=== PATIENT | female | born 1995 | race Two or more races ===

== ENCOUNTER 2016-11-24 11:55 | Emergency (ER) | payer MEDICAID ==
[~2016-11-24] VITALS: Ht 160 cm; Wt 77.1 kg
[~2016-11-24 11:55] MED LIST: CALCTAB25 PO; FERR325T50 PO; PREN-96 PO
[2016-11-24 12:39] VITALS: BP 118/79
[2016-11-24] MEDS ORDERED: diphenhdrAMINE HCL 50 MG/1 ML VL IM ONE (13:15)
== END 2016-11-24 13:31 | disposition home or self-care (01) ==
LOC: ER 11:55
DX: F12.10 Cannabis abuse, uncomplicated (principal); Z83.3 Family history of diabetes mellitus; Z79.899 Other long term (current) drug therapy
CPT/HCPCS: 96372; 99283; J1200

== ENCOUNTER 2018-04-09 06:47 | Emergency (ER) | payer MEDICAID ==
[~2018-04-09] VITALS: Ht 160 cm; Wt 53.9 kg
[2018-04-09 07:32] VITALS: BP 114/79
== END 2018-04-09 09:12 | disposition home or self-care (01) ==
LOC: ER 06:47
DX: S39.012A Strain of muscle, fascia and tendon of lower back, initial encounter (principal); S29.012A Strain of muscle and tendon of back wall of thorax, initial encounter; S16.1XXA Strain of muscle, fascia and tendon at neck level, initial encounter; M62.838 Other muscle spasm; R51 Headache; V49.9XXA Car occupant (driver) (passenger) injured in unspecified traffic accident, initial encounter; Y93.89 Activity, other specified; Y92.89 Other specified places as the place of occurrence of the external cause; Y99.8 Other external cause status
CPT/HCPCS: 70450; 72070; 72100; 72125

== ENCOUNTER 2018-07-16 09:29 | Emergency (ER) | payer MEDICAID ==
[~2018-07-16] VITALS: Ht 160 cm; Wt 111.6 kg
[2018-07-16 10:18] VITALS: BP 138/85
[2018-07-16 10:26] LABS: Basophils # (auto) 0 uL; Basophils % (auto) 0.5 % (0.0-2.0); Eosinophils # (auto) 0 uL; Eosinophils % (auto) 0.6 % (0.0-7.0); Hematocrit 41.9 % (36.0-46.0); Hemoglobin 14.4 g/dL (12.2-16.2); Lymphocytes % (auto) 34.9 % (10.0-50.0); Mean Corpuscular Hemoglobin 30.1 pg (28.0-32.0); Mean Corpuscular Hgb Conc. 34.3 g/dL (32.0-36.0); Mean Corpuscular Volume 87.8 fL (80.0-100.0); Monocytes # (auto) 0.5 uL; Neutrophils # (auto) 3.2 uL; Nucleated Red Blood Cells % 0.2 %; Platelet Count (auto) 297 10^3/uL (140-450); Red Blood Cells 4.78 10^6/uL (4.0-5.20); Red Cell Distribution Width 13.6 % (11.8-14.3); White Blood Cell 5.8 10^3/uL (4.4-10.8)
[2018-07-16 10:41] LABS: INR 0.95 (0.9-1.15); Partial Thromboplastin Time 29.1 sec (23.78-33.04); Prothrombin Time 10.2 sec (9.27-12.13)
[2018-07-16 10:41] LABS: Urine Bacteria NONE SEEN /hpf (None Seen); Urine Blood Negative /uL (Negative); Urine Mucus FEW (None Seen); Urine Specific Gravity 1.016 (1.001-1.035); Urine WBC 1 /hpf (0 - 5)
[2018-07-16 10:42] LABS: Albumin 4.1 g/dL (3.4-5.0); Calcium 8.6 mg/dL (8.5-10.1); Potassium 3.8 mmol/L (3.5-5.1)
[2018-07-16 10:45] LABS: BUN/Creatinine Ratio 12.9; Bilirubin, Total 0.4 mg/dL (0.2-1.0); Total Protein 8.3 g/dL (6.4-8.2)
== END 2018-07-16 11:51 | disposition home or self-care (01) ==
LOC: ER 09:29
DX: K64.8 Other hemorrhoids (principal); R04.0 Epistaxis; Z79.899 Other long term (current) drug therapy
CPT/HCPCS: 36415; 74176; 80053; 81001; 84702; 85025; 85610; 85730

== ENCOUNTER 2020-03-15 13:16 | Emergency (ER) | payer MEDICAID ==
[~2020-03-15] VITALS: Ht 160 cm; Wt 108.9 kg
[2020-03-15 13:26] VITALS: BP 133/91
[2020-03-15] MEDS ORDERED: KETOROLAC TROMETH 60MG/2ML VIAL IM ONE (15:45)
== END 2020-03-15 15:56 | disposition home or self-care (01) ==
LOC: ER 13:16
DX: S83.92XA Sprain of unspecified site of left knee, initial encounter (principal); S83.91XA Sprain of unspecified site of right knee, initial encounter; Z79.899 Other long term (current) drug therapy; X58.XXXA Exposure to other specified factors, initial encounter; Y93.89 Activity, other specified; Y92.89 Other specified places as the place of occurrence of the external cause; Y99.8 Other external cause status
CPT/HCPCS: 73562; 96372; 99283; J1885

== ENCOUNTER 2022-09-11 07:44 | Emergency (ER) | payer MEDICAID ==
[~2022-09-11] VITALS: Ht 160 cm; Wt 112.3 kg
[2022-09-11 08:09] VITALS: BP 141/89
[2022-09-11] MEDS ORDERED: KETOROLAC TROMETH 60MG/2ML VIAL IM ONE (08:30)
[2022-09-11] MEDS ORDERED: METH750T22 PO (08:59)
[2022-09-11] MEDS ORDERED: IBUP800T27 PO (08:59)
== END 2022-09-11 09:05 | disposition home or self-care (01) ==
LOC: ER 07:44
DX: M54.42 Lumbago with sciatica, left side (principal); F12.10 Cannabis abuse, uncomplicated; Z88.6 Allergy status to analgesic agent; X50.1XXA Overexertion from prolonged static or awkward postures, initial encounter; Y93.01 Activity, walking, marching and hiking; Y92.89 Other specified places as the place of occurrence of the external cause; Y99.8 Other external cause status
CPT/HCPCS: 72100; 96372; 99283; J1885

== ENCOUNTER 2024-02-28 07:05 | Emergency (ER) | payer MEDICAID ==
[~2024-02-28] VITALS: Ht 160 cm; Wt 113.6 kg
[~2024-02-28 07:05] MED LIST changes: +IBUP-1456 PO; +METH-1182 PO
[2024-02-28] MEDS: KETOROLAC TROMETH 60MG/2ML VIAL IM ONE (08:20)
[2024-02-28 08:29] VITALS: BP 120/82; PULSE 90; RESP 18; TEMP 97.6; O2SAT 97
== END 2024-02-28 08:46 | disposition home or self-care (01) ==
LOC: ER 07:05
DX: S63.501A Unspecified sprain of right wrist, initial encounter (principal); F12.90 Cannabis use, unspecified, uncomplicated; Z79.1 Long term (current) use of non-steroidal anti-inflammatories (NSAID); Z79.899 Other long term (current) drug therapy; X58.XXXA Exposure to other specified factors, initial encounter; Y93.72 Activity, wrestling; Y92.89 Other specified places as the place of occurrence of the external cause; Y99.8 Other external cause status
CPT/HCPCS: 29125; 73110; 73130; 99284; J1885

== ENCOUNTER 2024-06-06 06:32 | Emergency (ER) | payer MEDICAID ==
[2024-06-06 09:29] VITALS: BP 112/76; TEMP 98.3
[2024-06-06 09:35] VITALS: PULSE 72; RESP 100; O2SAT 98
[2024-06-06] MEDS ORDERED: METH4PAK PO (10:00)
[2024-06-06] MEDS ORDERED: LIDO2SOL26 MT (10:00)
[2024-06-06] MEDS ORDERED: PSEU240T PO (10:00)
[2024-06-06] MEDS ORDERED: IBUP1TAB5 PO (10:00)
--- NOTE | 2024-06-06 10:00 | ED.PDOC ---
History of Present Illness HPI Comments 28 year old presents for F/U on URI Has hx of asthma, and c/o a cough, sore throat, body aches, headaches Was dx with bronchitis Completed course of Z pack, taking promethazine . Denies fevers chills night sweats unintentional weight loss Denies persistent chest pain, shortness of breath, leg swelling Denies history of asthma nor any breathing conditions Denies history of pneumonia Denies recent international travel Chief Complaint: Flu like Time Seen by MD: 08:42 Reviewed Notes: Nurses Notes, Medications, Allergies Information Source: Patient Past Medical History PAST MEDICAL HISTORY: Denies Surgical History: Denies all surgeries WATCH GUARD GATE History: No Pertinent WATCH GUARD GATE History Family History Family History: Reviewed,noncontributory to illness, No family hx of DM Social History Smoker: Non-Smoker Alcohol: Occasionally Drugs: Marijuana Lives In: Home All Other Systems: Reviewed and Negative (Per HPI) Physical Exam General Appearance: No Apparent Distress, Normal HEENT: Normal ENT Inspection, Pharynx Normal, TMs Normal Neck: Full Range of Motion, Non-Tender, Normal, Normal Inspection Respiratory: Chest Non-Tender, Lungs Clear, No Accessory Muscle Use, No Respira tory Distress, Normal Breath Sounds Cardiovascular: No Murmur, No Gallop, Regular Rate/Rhythm Breast Exam: Deferred Gastrointestinal: No Organomegaly, Non Tender, No Pulsatile Mass, Normal Bowel Sounds, Soft Genitalia: Deferred Pelvic: Deferred Rectal: Deferred Extremities: No calf tenderness, Normal capillary refill, Normal inspection, Normal range of motion, Non-tender, No pedal edema Musculoskeletal : Apperance: Normal Neurologic: Alert, No Motor Deficits, Normal Affect, Normal Mood, No Sensory Deficits Cerebellar Function: Normal Reflexes: Normal Skin: Dry, Normal Color, Warm Lymphatic: No Adenopathy Was a procedure done? Was a procedure done?: No Fever Differential Dx Differential Diagnosis: Viral Syndrome X-Ray, Labs, Meds, VS Vital Signs Date Time Temp Pulse Resp B/P (MAP) Pulse Ox O2 Delivery O2 Flow Rate FiO2 06/06/24 09:35 72 100 98 Room Air 06/06/24 09:29 98.3 79 18 112/76 (88) 98 98.3 06/06/24 07:20 97.8 72 17 100/85 (90) 96 X-Ray, Labs, Meds, VS Comment On reevaluation, patient had symptomatic improvement. Patient is stable for discharge at this time. Symptomatic treatment No indication for labs or imaging at this time. The patient is stable nontoxic All diagnostic findings, discharge care, education and instructions provided Follow-up with PCP in 2 to 3 days Patient verbalized understanding and agreed to treatment plan Vital signs stable, afebrile, no acute distress noted Patient ambulatory with strong steady gait Advised to return precautions for any new or worsening symptoms, return to ER immediately for re-evaluation Patient is aware that the purpose of this visit was for an acute medical emergency requiring emergent stabilization. Chronic conditions, including malignancies have not been ruled out. Patient is instructed to follow up with PCP as directed and discharge instructions for continued care and workup. If unable to arrange follow-up, patient is to return to the emergency department for reassessment. Patient (parent or legal guardian if applicable) was given verbal and written discharge instructions and acknowledges understanding. Time of 1ST Reevaluation: 10:00 Reevaluation 1ST: Improved Patient Education/Counseling: Diagnosis, Treatment Family Education/Counseling: Diagnosis, Treatment Departure 1 Departure Time of Disposition: 10:00 Impression: Primary Impression: Bronchitis Disposition: 01 HOME / SELF CARE / HOMELESS Condition: Fair e-Prescriptions Lidocaine HCl (Mouth-Throat) (Lidocaine HCl Viscous) 2 % Sachi 15 ML MT TID for 3 Days, #300 ML 0 Refills Prov: DEISY RILEY NP 06/06/24 Pseudoephedrine (Sudafed 24 Hour) 240 Mg Tab 240 MG PO DAILY for 14 Days, #14 TAB 0 Refills Prov: DEISY RILEY NP 06/06/24 Methylprednisolone (Medrol Dosepak) 4 Mg Noah 4 MG PO UD, #21 TAB 0 Refills UAD Prov: DEISY RILEY NP 06/06/24 Ibuprofen Micronized (Ibuprofen) 600 Mg Tab 600 MG PO TID for 10 Days, #30 TAB 0 Refills Prov: DEISY RILEY NP 06/06/24 Critical Care Note Critical Care Time?: No Stability Stability form required: No Heart Score Heart Score: Heart Score Response (Comments) Value History N/A 0 EKG N/A 0 Age N/A 0 Risk Factors N/A 0 Troponin N/A 0 Total 0 DEISY RILEY NP Jun 06, 2024 10:00
== END 2024-06-06 10:01 | disposition home or self-care (01) ==
LOC: ER 06:32
DX: J40 Bronchitis, not specified as acute or chronic (principal)